=== PATIENT | female | born 1950 | race Caucasian/White ===

== ENCOUNTER 2019-01-09 08:39 | Inpatient (IN) | payer BC, OTHER ==
[~2019-01-09] VITALS: Ht 167.6 cm; Wt 105.7 kg
[2019-01-09 09:26] VITALS: BP 172/97
[2019-01-09 16:23] VITALS: BP 121/54
[2019-01-09 20:30] VITALS: BP 98/47
[2019-01-10 05:40] VITALS: BP 109/59
[2019-01-10 06:52] LABS: BASOPHIL % 0.3 % (0-2); PLATELET COUNT 233 x10^3mcL (130-400)
[2019-01-10 06:55] LABS: RED CELL DISTRIBUTION WIDTH 15.3 % (11.5-14.5)
[2019-01-10 07:19] LABS: CALCIUM 7.5 mg/dL (8.5-10.1); CARBON DIOXIDE 29.7 mmol/L (21-32); CHLORIDE SERUM 106 mmol/L (98-107); CREATININE SERUM 0.8 mg/dL (0.6-1.0); GFR1 > 60 mL/min; GLUCOSE SERUM 126 mg/dL (74-106); POTASSIUM SERUM 3.6 mmol/L (3.5-5.1); SODIUM SERUM 142 mmol/L (136-145)
[2019-01-10 09:45] VITALS: BP 100/46
[2019-01-10 12:44] LABS: rbc morphology (normal/abnorm) ABNORMAL (NORMAL)
[2019-01-10 13:20] VITALS: BP 100/46
== END 2019-01-10 14:59 | disposition home or self-care (01) | DRG 470 ==
LOC: MU 08:39 → DU 10:30 → MU 16:10
PROVIDERS: ADMIT Orthopaedic Surgery
PROC: 0SRB04Z Replacement of Left Hip Joint with Ceramic on Polyethylene Synthetic Substitute, Open Approach (ICD-10-PCS; principal; 2019-01-09 10:30)
DX: M16.12 Unilateral primary osteoarthritis, left hip (principal)
CPT/HCPCS: 97116-GP; 97530-GP; C1713; C1776; G0378; J0690; J1170; J1885; J2270; J2405; J2704; J3010; J3490; J7030; Q0092